=== PATIENT | male | born 1960 | race Caucasian/White ===

== ENCOUNTER 2017-08-11 09:05 | Day surgery (SDC) | payer BC ==
[2017-08-07 12:59] VITALS: BMI 23.1
[~2017-08-11 09:05] MED LIST: LACTATED RINGERS 1,000 ML IV SCH; LIDOCAINE 1% 20 ML VIAL (10MG/ML) FOR IV START INTRADERMA PRN
[2017-08-11 10:34] VITALS: RESP 16; TEMP 97.5
--- NOTE | 2017-08-11 11:55 | P.PCN ---
Date of Procedure: 08/11/17 Procedure(s) Performed: Procedure: Colonoscopy and polypectomy. Preoperative diagnosis: Screening for neoplasia, patient has history of polyps. Postoperative diagnosis: 2 small polyps around the hepatic flexure snared but no large polyps or cancer. Preparation: HalfLytely prep. Sedation: Was declined as patient wanted to have the procedure done unsedated because he had no driver service technician. Brief clinical history: The patient is a 57-year-old male who is scheduled for this evaluation because of history of polyps for screening for neoplasia. His last exam was around 5 years ago. Because the patient had no driver service technician, he requested that we do this procedure without sedation. Apparently, he had it done without sedation the first time and he has experience of how it would feel like. Procedure: With the patient on his left lateral decubitus position and after informed consent, the perianal area was inspected and it did not show any fissures or fistulas. There were no masses felt on digital rectal examination. The Olympus CFQ 160L video colonoscope was then inserted in the rectum in the usual fashion and advanced to the cecum. The mucosa appeared healthy. There were 2 small polyps around the hepatic flexure which were snared and retrieved by suction but there were no large polyps or cancer. No obvious diverticular disease or other pathology. I retroflexed the endoscope in the rectum before the endoscope was withdrawn. The patient tolerated the procedure well. Plan: The patient was reassured. Will await pathology results. I recommended repeat exam in 5 years.
[2017-08-11 11:59] VITALS: BP 136/87; PULSE 59
== END 2017-08-11 12:05 | disposition home or self-care (01) ==
LOC: ORWHC2ENDO 09:05
DX: Z12.11 Encounter for screening for malignant neoplasm of colon (principal); D12.3 Benign neoplasm of transverse colon; Z86.010 Personal history of colon polyps; Z88.1 Allergy status to other antibiotic agents; Z79.899 Other long term (current) drug therapy
CPT/HCPCS: 45385; 88305